=== PATIENT | female | born 1950 | race Asian ===

== ENCOUNTER 2019-03-03 00:23 | Emergency (ER) | payer MEDICARE ==
[~2019-03-03] VITALS: Ht 152.4 cm; Wt 65.0 kg
[2019-03-03] MEDS ORDERED: HYDR25TA PO (00:37)
[2019-03-03] MEDS ORDERED: ONDANSETRON HCL 4 MG TABLET PO ONE (01:30)
[2019-03-03] MEDS ORDERED: CloNIDine HCL 0.2 MG TABLET PO ONE (01:30)
[2019-03-03] MEDS ORDERED: KETOROLAC TROMETHAMINE 30 MG/ML VIAL IM ONE (01:30)
[2019-03-03 02:51] VITALS: BP 100/67
== END 2019-03-03 03:10 | disposition home or self-care (01) ==
LOC: EMS 00:23
DX: I10 Essential (primary) hypertension (principal); R51 Headache; F41.9 Anxiety disorder, unspecified
CPT/HCPCS: 96372; 99283; J1885; Q0162